=== PATIENT | female | born 2000 | race Caucasian/White ===

== ENCOUNTER → 2024-04-21 16:31 | Outpatient (CLI) | payer OTHER, MEDICAID, SELFPAY ==
--- NOTE | 2024-04-21 16:33 | DI.US.S_ITS ---
PROCEDURE: US PELVIC COMPLETE INDICATIONS: Irregular bleeding TECHNIQUE: Real-time scanning was performed of the pelvic organs, with image documentation. Additional endovaginal scanning was necessary due to incomplete visualization of the adnexal and endometrial structures by transabdominal scanning. COMPARISON: [facility], US, US PELVIC COMPLETE WITH TRANSVAGINAL, 04/18/2023, 13:42. FINDINGS: Uterus: Uterus is anteverted and normal in size at 9.2 x 3.4 x 4.4 cm. The myometrium is homogeneous. The endometrium measures 1.4 mm combined thickness. A trace amount of free fluid is present in the endometrial canal, likely physiologic. Ovaries: The right ovary measures 1.9 x 1.7 x 3.1 cm, with a calculated ovarian volume of 5.1 cc. The left ovary measures 3.0 x 1.7 x 2.7 cm, with a calculated ovarian volume of 7.2 cc. The ovaries have a normal sonographic appearance. Less than 12 follicles can be seen in each ovary. No adnexal masses are seen. Other: No pathologic free abdominal or pelvic fluid. IMPRESSION: No sonographic abnormality of the uterus or ovaries. We strive to produce accurate, complete, and clear reports of imaging services. To assist us in improving patient care, this report was composed using standard report templates and voice recognition software. Therefore, it may contain abnormal punctuation, insertions and/or omissions. Occasional wrong-word or sound-alike substitutions may occur. Though we review the report and make efforts to correct it, we do recommend that the report be read carefully in proper context to recognize any text inaccuracies. Dictated by: Angel Gastelum M.D. on 04/21/2024 at 18:03 Approved by: Angel Gastelum M.D. on 04/21/2024 at 18:05
== END ==
PROVIDERS: Referring Provider Obstetrics & Gynecology; Visit Provider Obstetrics & Gynecology
DX: N92.0 Excessive and frequent menstruation with regular cycle (principal)
CPT/HCPCS: 76830; 76856

== ENCOUNTER → 2024-04-22 15:12 | Outpatient (CLI) | payer OTHER, MEDICAID, SELFPAY ==
[2024-04-22 17:29] LABS: Follicle Stimulating Hormone 1.21 mIU/mL; Luteinizing Hormone 1.03 mIU/mL; Prolactin 10.6 ng/mL (3.0-18.6)
[2024-04-26 20:36] LABS: Factor VIII Activity 93 % (56-140); PTT 25.8 sec (22.9-30.2); von Willebrand Activity 59 % (50-200); von Willebrand Antigen 68 % (50-200)
== END ==
PROVIDERS: PCP Family Medicine; Referring Provider Obstetrics & Gynecology; Visit Provider Obstetrics & Gynecology
DX: N93.9 Abnormal uterine and vaginal bleeding, unspecified (principal); N92.0 Excessive and frequent menstruation with regular cycle
CPT/HCPCS: 36415; 83001; 83002; 84146; 85240; 85246; 85730